=== PATIENT | female | born 1955 | race Caucasian/White ===

== ENCOUNTER 2017-10-28 13:45 | Inpatient (IN) ==
[2017-10-28 14:55] LABS: Basophils % 0.2 % (0.0-0.8); Eosinophils # 0.1 10*3/uL (0.0-0.87); Eosinophils % 2.2 % (0.00-10.9); Hematocrit 25.3 VOL% (35.7-47.0); Hemoglobin 8.8 GM/DL (12.0-16.0); Immature Granulocytes % 1.7 %; Immature Granulocytes Absolute 0.07 #; Lymphocytes # 1.1 10*3/uL (1.4-4.0); Mean Corpuscular HGB Conc 34.8 GM/DL (32-36); Mean Corpuscular Hemoglobin 42 PG (27-34); Mean Corpuscular Volume 119.9 FL (87-102); Mean Platelet Volume 10.9 FL (9.6-12.0); Monocytes # 0.1 10*3/uL (0.11-0.8); Monocytes % 2.4 % (1.7-12.7); NRBC # 0.03 10*3/uL; Neutrophils # 2.8 10*3/uL (1.4-7.4); Neutrophils % 67.5 % (38.7-73.9); Platelet Count 89 T/CUMM (130-400); Red Blood Count 2.11 MC/CUMM (3.8-5.5); White Blood Count 4.2 T/CUMM (4-12)
[2017-10-28 15:13] LABS: Alanine Aminotransferase 18 U/L (13-56); Albumin 3.3 G/DL (3.4-5.0); Alkaline Phosphatase 101 U/L (45-117); Aspartate Amino Transferase 41 U/L (0-37); Blood Urea Nitrogen 7 MG/DL (7-18); Calcium 8.6 MG/DL (8.5-10.1); Glucose 59 MG/DL (74-106); Osmolality,Calculated 276.3 MOS/KG (273-304); Potassium 3.9 MMOL/L (3.5-5.1); Sodium 141 MMOL/L (136-145); Total Protein 7.1 G/DL (6.4-8.3); Troponin I < 0.015 NG/ML (0.00-0.045)
[2017-10-28 15:57] LABS: Anisocytosis 1+; Macrocytosis 2+; Poikilocytosis 1+
[2017-10-28 15:58] LABS: Ovalocytes Few; Polychromasia Slight
[2017-10-28 15:59] LABS: Platelet Estimate Decreased; Tear Drop Cells Few
[2017-10-28 16:00] LABS: Hypochromasia 1+
[2017-10-28 17:02] LABS: Haptoglobin < 8.0 MG/DL (30-200)
[2017-10-28] MEDS ORDERED: CYANOCOBALAMIN 1000 MCG/1 ML VIAL IM STA (17:40)
[2017-10-28] MEDS ORDERED: ONDANSETRON 4 MG/2 ML VIAL IV PRN (18:25)
[2017-10-28 18:54] LABS: % Iron Saturation 38.3 % (18-50)
[2017-10-28 18:56] LABS: Apearance,Urine Slightly Hazy (Clear); Bacteria,Urine Moderate /HPF (Few); Bilirubin,Urine Negative (Negative); Blood, Urine Negative (Negative); Glucose,Urine (UA) Negative (Negative); Ketones,Urine Negative (Negative); Mucus,Urine Many /LPF (Occasional); Nitrite,Urine Positive (Negative); Protein,Urine 30 MG/DL; RBC,Urine 1 /HPF (0-4); Squamous Epithelial Cell,Urine Occasional /HPF (0-10); Urine Color Dark yellow (Yellow); Urine Specific Gravity 1.015 (1.001-1.035); WBC,Urine 9 /HPF (0-6)
[2017-10-28] MEDS ORDERED: GLUCAGON 1 MG VIAL IM PRN (19:20)
[2017-10-28] MEDS ORDERED: DEXTROSE 50% 25 GM/50 ML VIAL IV PRN (19:20)
[2017-10-28] MEDS: SODIUM CHLORIDE 0.9% 1,000 ML IV SCH (21:55)
[2017-10-28] MEDS: glipiZIDE 5 MG TABLET PO SCH (22:47)
[2017-10-28] MEDS: metFORMIN 500 MG TABLET PO SCH (22:47)
[2017-10-28] MEDS: AMITRIPTYLINE 75 MG TABLET PO SCH (22:47)
[2017-10-28] MEDS ORDERED: ACETAMINOPHEN 325 MG TABLET PO PRN (22:57)
[2017-10-29] MEDS: INSULIN REGULAR 100 UNIT/ML SUBCUT SCH ×5 (01:38→20:39)
[2017-10-29 04:55] LABS: Basophils % 0.2 % (0.0-0.8); Eosinophils # 0.1 10*3/uL (0.0-0.87); Eosinophils % 3.4 % (0.00-10.9); Hematocrit 19.7 VOL% (35.7-47.0); Hemoglobin 6.7 GM/DL (12.0-16.0); Immature Granulocytes % 0.7 %; Immature Granulocytes Absolute 0.03 #; Lymphocytes % 48.7 % (21.3-54.2); Mean Corpuscular Hemoglobin 41 PG (27-34); Mean Corpuscular Volume 121.6 FL (87-102); Mean Platelet Volume 10.5 FL (9.6-12.0); Monocytes # 0.2 10*3/uL (0.11-0.8); Monocytes % 3.8 % (1.7-12.7); NRBC # 0.04 10*3/uL; Neutrophils # 1.8 10*3/uL (1.4-7.4); Neutrophils % 43.2 % (38.7-73.9); Red Blood Count 1.62 MC/CUMM (3.8-5.5); White Blood Count 4.2 T/CUMM (4-12)
[2017-10-29 05:21] LABS: Calcium 8.1 MG/DL (8.5-10.1); Osmolality,Calculated 283.7 MOS/KG (273-304); Potassium 3.1 MMOL/L (3.5-5.1)
[2017-10-29 05:29] LABS: Platelet Count 76 T/CUMM (130-400)
[2017-10-29] MEDS: LEVOTHYROXINE 175 MCG TABLET PO SCH (07:03)
[2017-10-29] MEDS: SODIUM CHLORIDE 0.9% 1,000 ML IV SCH (09:21)
[2017-10-29] MEDS: LISINOPRIL/HCTZ 10-12.5 MG TABLET PO SCH (09:21)
[2017-10-29] MEDS: metFORMIN 500 MG TABLET PO SCH ×2 (09:22→20:38)
[2017-10-29] MEDS: CYANOCOBALAMIN 1000 MCG/1 ML VIAL IM SCH (09:22)
[2017-10-29] MEDS: glipiZIDE 5 MG TABLET PO SCH ×2 (09:22→20:38)
[2017-10-29] MEDS ORDERED: SODIUM CHLORIDE 0.9% 1,000 ML IV PRN (09:25)
[2017-10-29] MEDS: cefTRIAXone 1,000 MG in SYRINGE 1 EACH IV SCH (09:53)
[2017-10-29] MEDS: POTASSIUM CHLORIDE 20 MEQ TABLET PO PRN ×3 (09:54→14:11)
[2017-10-29 13:37] LABS: Anisocytosis 2+; Microcytosis 1+; Poikilocytosis 2+; Reactive Lymphocytes Slight; Tear Drop Cells Few
[2017-10-29 13:38] LABS: Ovalocytes Few; Platelet Estimate Decreased; Polychromasia Slight; Schistocytes Slight
[2017-10-29 17:49] LABS: Hematocrit 27.7 VOL% (35.7-47.0)
[2017-10-29 17:50] LABS: Hemoglobin 9.3 GM/DL (12.0-16.0)
[2017-10-29] MEDS: AMITRIPTYLINE 75 MG TABLET PO SCH (20:38)
[2017-10-30] MEDS: SODIUM CHLORIDE 0.9% 1,000 ML IV SCH ×3 (00:03→20:47)
[2017-10-30 04:24] LABS: Basophils % 0.2 % (0.0-0.8); Eosinophils # 0.2 10*3/uL (0.0-0.87); Eosinophils % 4.2 % (0.00-10.9); Hematocrit 25.4 VOL% (35.7-47.0); Hemoglobin 8.7 GM/DL (12.0-16.0); Immature Granulocytes % 1.5 %; Immature Granulocytes Absolute 0.07 #; Lymphocytes # 2.3 10*3/uL (1.4-4.0); Lymphocytes % 51.4 % (21.3-54.2); Mean Corpuscular HGB Conc 34.3 GM/DL (32-36); Mean Corpuscular Hemoglobin 39 PG (27-34); Mean Corpuscular Volume 113.9 FL (87-102); Mean Platelet Volume 9.2 FL (9.6-12.0); Monocytes # 0.3 10*3/uL (0.11-0.8); Monocytes % 6.6 % (1.7-12.7); NRBC # 0.04 10*3/uL; Neutrophils # 1.6 10*3/uL (1.4-7.4); Neutrophils % 36.1 % (38.7-73.9); Platelet Count 74 T/CUMM (130-400); Red Blood Count 2.23 MC/CUMM (3.8-5.5); White Blood Count 4.5 T/CUMM (4-12)
[2017-10-30 04:56] LABS: Eosinophils 5 % (0-10); Hypochromasia 1+; Lymphocytes 49 % (20-55); Platelet Estimate Decreased; Segmented Neutrophils 41 % (50-85); Total Cells Counted 100
[2017-10-30 04:57] LABS: Macrocytosis Slight; Ovalocytes Slight; Polychromasia Slight
[2017-10-30] MEDS: LEVOTHYROXINE 175 MCG TABLET PO SCH (05:38)
[2017-10-30] MEDS: INSULIN REGULAR 100 UNIT/ML SUBCUT SCH ×4 (07:32→20:46)
[2017-10-30] MEDS: CYANOCOBALAMIN 1000 MCG/1 ML VIAL IM SCH (08:20)
[2017-10-30] MEDS: LISINOPRIL/HCTZ 10-12.5 MG TABLET PO SCH (08:20)
[2017-10-30] MEDS: metFORMIN 500 MG TABLET PO SCH ×2 (08:24→20:46)
[2017-10-30] MEDS: glipiZIDE 5 MG TABLET PO SCH ×2 (08:24→20:46)
[2017-10-30] MEDS: cefTRIAXone 1,000 MG in SYRINGE 1 EACH IV SCH (08:30)
[2017-10-30] MEDS ORDERED: PROPOFOL 200 MG/20 ML VIAL IV ONE (08:54)
[2017-10-30] MEDS ORDERED: LIDOCAINE 100 MG/5 ML SYRINGE ONE (08:54)
[2017-10-30] MEDS: BISACODYL 5 MG TABLET PO SCH ×2 (10:23→17:17)
[2017-10-30] MEDS ORDERED: POLYETHYLENE GLYCOL POWDER 255 GM BOTTLE PO ONE (18:00)
[2017-10-30] MEDS: AMITRIPTYLINE 75 MG TABLET PO SCH (20:40)
[2017-10-30] MEDS ORDERED: MAGNESIUM CITRATE 300 ML BOTTLE PO ONE (21:00)
[2017-10-31] MEDS: BISACODYL 5 MG TABLET PO SCH (01:09)
[2017-10-31] MEDS: SODIUM CHLORIDE 0.9% 1,000 ML IV SCH ×2 (05:58→12:48)
[2017-10-31] MEDS: LEVOTHYROXINE 175 MCG TABLET PO SCH (05:58)
[2017-10-31] MEDS: INSULIN REGULAR 100 UNIT/ML SUBCUT SCH ×4 (09:22→21:07)
[2017-10-31] MEDS: glipiZIDE 5 MG TABLET PO SCH ×2 (09:24→21:09)
[2017-10-31] MEDS: metFORMIN 500 MG TABLET PO SCH ×2 (09:24→21:09)
[2017-10-31] MEDS: CYANOCOBALAMIN 1000 MCG/1 ML VIAL IM SCH (09:56)
[2017-10-31] MEDS: cefTRIAXone 1,000 MG in SYRINGE 1 EACH IV SCH (09:57)
[2017-10-31] MEDS ORDERED: LIDOCAINE 2% 5 ML VIAL ONE (10:00)
[2017-10-31] MEDS ORDERED: PHENYLEPHRINE 1 MG/10 ML SYRINGE IV ONE (10:00)
[2017-10-31] MEDS ORDERED: PROPOFOL 200 MG/20 ML VIAL IV ONE (10:00)
[2017-10-31 10:33] LABS: Albumin 2.9 G/DL (3.4-5.0); Bilirubin,Direct 1.08 MG/DL (0.0-0.20); Bilirubin,Total 2.1 MG/DL (0.2-1.0)
[2017-10-31 11:26] LABS: Hepatitis A Ab IgM Quant 0.25 Index; Hepatitis A Ab IgM Result Negative (Negative); Hepatitis B Core IgM Quant < 0.05 Index; Hepatitis B Core IgM Result Negative (Negative); Hepatitis B Surface Ag Quant 0.48 Index; Hepatitis B Surface Ag Result Negative (Negative); Hepatitis C Virus Ab Quant 0.02 Index; Hepatitis C Virus Ab Result Negative (Negative)
[2017-10-31] MEDS: LISINOPRIL/HCTZ 10-12.5 MG TABLET PO SCH (14:59)
[2017-10-31] MEDS: AMITRIPTYLINE 75 MG TABLET PO SCH (21:13)
[2017-11-01] MEDS: SODIUM CHLORIDE 0.9% 1,000 ML IV SCH (02:19)
[2017-11-01] MEDS: LEVOTHYROXINE 175 MCG TABLET PO SCH (06:22)
[2017-11-01] MEDS: INSULIN REGULAR 100 UNIT/ML SUBCUT SCH ×4 (07:37→20:32)
[2017-11-01] MEDS: metFORMIN 500 MG TABLET PO SCH ×2 (08:38→20:31)
[2017-11-01] MEDS: glipiZIDE 5 MG TABLET PO SCH ×2 (08:39→20:31)
[2017-11-01] MEDS: CYANOCOBALAMIN 1000 MCG/1 ML VIAL IM SCH (09:27)
[2017-11-01] MEDS: LISINOPRIL/HCTZ 10-12.5 MG TABLET PO SCH (09:27)
[2017-11-01] MEDS: cefTRIAXone 1,000 MG in SYRINGE 1 EACH IV SCH (09:28)
[2017-11-01 10:54] LABS: INR 1.1
[2017-11-01] MEDS: AMITRIPTYLINE 75 MG TABLET PO SCH (20:32)
[2017-11-02] MEDS: LEVOTHYROXINE 175 MCG TABLET PO SCH (06:02)
[2017-11-02] MEDS: INSULIN REGULAR 100 UNIT/ML SUBCUT SCH ×2 (07:16→13:27)
[2017-11-02] MEDS: metFORMIN 500 MG TABLET PO SCH (08:27)
[2017-11-02] MEDS: glipiZIDE 5 MG TABLET PO SCH (08:27)
[2017-11-02] MEDS: cefTRIAXone 1,000 MG in SYRINGE 1 EACH IV SCH (09:12)
[2017-11-02] MEDS: CYANOCOBALAMIN 1000 MCG/1 ML VIAL IM SCH (09:12)
[2017-11-02] MEDS: LISINOPRIL/HCTZ 10-12.5 MG TABLET PO SCH (09:12)
[2017-11-02 11:47] VITALS: BP 102/64
== END 2017-11-02 14:00 | disposition home or self-care (01) | DRG 241 ==
LOC: N.ED 13:45 → N.EDINP 18:21 → N.3E 19:31
PROVIDERS: ADMIT Internal Medicine; ATTEND Internal Medicine

== ENCOUNTER 2018-03-13 15:41 | Inpatient (IN) ==
[2018-03-13 17:07] LABS: Basophils # 0.1 10*3/uL (0.0-0.2); Basophils % 0.3 % (0.0-0.8); Hematocrit 39.5 VOL% (35.7-47.0); Hemoglobin 12.9 GM/DL (12.0-16.0); Immature Granulocytes % 0.8 %; Immature Granulocytes Absolute 0.19 #; Lymphocytes # 1.5 10*3/uL (1.4-4.0); Lymphocytes % 6.6 % (21.3-54.2); Mean Corpuscular HGB Conc 32.7 GM/DL (32-36); Mean Corpuscular Hemoglobin 28 PG (27-34); Mean Corpuscular Volume 84.4 FL (87-102); Mean Platelet Volume 10.9 FL (9.6-12.0); Monocytes # 1.1 10*3/uL (0.11-0.8); Monocytes % 4.9 % (1.7-12.7); Neutrophils # 19.7 10*3/uL (1.4-7.4); Neutrophils % 87.4 % (38.7-73.9); Platelet Count 131 T/CUMM (130-400); Red Blood Count 4.68 MC/CUMM (3.8-5.5); Red Cell Distribution Width 13.3 % (9.3-17.3); White Blood Count 22.6 T/CUMM (4-12)
[2018-03-13] MEDS ORDERED: IBUPROFEN 400 MG TABLET PO STA (17:23)
[2018-03-13 17:32] LABS: Albumin 3.3 G/DL (3.4-5.0); Bilirubin,Indirect 1.3 MG/DL (0.0-1.0); Bilirubin,Total 2.3 MG/DL (0.2-1.0); Calcium 8.8 MG/DL (8.5-10.1); Osmolality,Calculated 275.4 MOS/KG (273-304); Potassium 3.3 MMOL/L (3.5-5.1); Total Protein 8.6 G/DL (6.4-8.3)
[2018-03-13] MEDS ORDERED: SODIUM CHLORIDE 0.9% 1,000 ML IV STA (18:59)
[2018-03-13 20:00] LABS: Lymphocytes 8 % (20-55); Segmented Neutrophils 87 % (50-85); Total Cells Counted 100
[2018-03-13 20:01] LABS: Anisocytosis Slight; Hypochromasia 1+
[2018-03-13 20:02] LABS: Microcytosis Slight
[2018-03-13 20:04] LABS: Platelet Estimate Adequate
[2018-03-13] MEDS ORDERED: cefTRIAXone 1,000 MG in SODIUM CHLORIDE 0.9% 100 ML IV STA (20:33)
[2018-03-13 21:08] LABS: Apearance,Urine CLOUDY (Clear); Bacteria,Urine Many /HPF (Few); Bilirubin,Urine Negative (Negative); Blood, Urine Small mg/dL (Negative); Glucose,Urine (UA) Negative (Negative); Hyaline Casts,Urine 32 /LPF (0-3); Ketones,Urine Negative (Negative); Mucus,Urine Occasional /LPF (Occasional); Nitrite,Urine Negative (Negative); Protein,Urine 100 MG/DL; RBC,Urine 6 /HPF (0-4); Urine Color Amber (Yellow); Urine Specific Gravity 1.014 (1.001-1.035); WBC,Urine 355 /HPF (0-6)
[2018-03-14] MEDS ORDERED: BISACODYL 5 MG TABLET PO PRN (00:59)
[2018-03-14] MEDS ORDERED: DEXTROSE 50% 25 GM/50 ML SYRINGE IV PRN (00:59)
[2018-03-14] MEDS ORDERED: GLUCAGON 1 MG VIAL IM PRN (00:59)
[2018-03-14] MEDS ORDERED: ONDANSETRON 4 MG/2 ML VIAL IV PRN (00:59)
[2018-03-14] MEDS ORDERED: POTASSIUM CHLORIDE INJ 20 MEQ in SODIUM CHLORIDE 0.9% 1,000 ML IV SCH (01:00)
[2018-03-14] MEDS: SODIUM CHLOR 0.9% KCL 20 MEQ 20 MEQ/1,000 ML BAG IV SCH ×3 (01:41→22:18)
[2018-03-14] MEDS: CEFEPIME 1,000 MG in SYRINGE 1 EACH IV SCH ×2 (01:44→13:16)
[2018-03-14] MEDS: ACETAMINOPHEN 325 MG TABLET PO PRN ×2 (04:09→17:30)
[2018-03-14 04:53] LABS: Basophils # 0.1 10*3/uL (0.0-0.2); Basophils % 0.4 % (0.0-0.8); Eosinophils % 0.1 % (0.00-10.9); Hematocrit 36.4 VOL% (35.7-47.0); Hemoglobin 11.7 GM/DL (12.0-16.0); Immature Granulocytes % 0.4 %; Immature Granulocytes Absolute 0.06 #; Lymphocytes # 0.9 10*3/uL (1.4-4.0); Lymphocytes % 6.5 % (21.3-54.2); Mean Corpuscular HGB Conc 32.1 GM/DL (32-36); Mean Corpuscular Hemoglobin 28 PG (27-34); Mean Corpuscular Volume 85.4 FL (87-102); Monocytes # 0.6 10*3/uL (0.11-0.8); Monocytes % 4.5 % (1.7-12.7); Neutrophils # 12.5 10*3/uL (1.4-7.4); Neutrophils % 88.1 % (38.7-73.9); Platelet Count 134 T/CUMM (130-400); Red Blood Count 4.26 MC/CUMM (3.8-5.5); Red Cell Distribution Width 13.4 % (9.3-17.3); White Blood Count 14.2 T/CUMM (4-12)
[2018-03-14 05:22] LABS: Calcium 8.6 MG/DL (8.5-10.1); Osmolality,Calculated 282.7 MOS/KG (273-304); Potassium 3.5 MMOL/L (3.5-5.1)
[2018-03-14] MEDS: LEVOTHYROXINE 175 MCG TABLET PO SCH (05:48)
[2018-03-14 05:53] LABS: Band Neutrophils 10 % (0-10); Hypochromasia 1+; Lymphocytes 9 % (20-55); Microcytosis Slight; Ovalocytes Slight; Segmented Neutrophils 80 % (50-85); Total Cells Counted 100
[2018-03-14] MEDS: INSULIN REGULAR 100 UNIT/ML SUBCUT SCH ×3 (08:15→16:59)
[2018-03-14] MEDS: VITAMIN E 400 UNIT CAPSULE PO SCH ×2 (08:16→22:14)
[2018-03-14] MEDS: PANTOPRAZOLE 40 MG TABLET PO SCH ×2 (08:16→22:14)
[2018-03-14] MEDS: metFORMIN 500 MG TABLET PO SCH ×2 (08:16→22:14)
[2018-03-14] MEDS ORDERED: hydrALAZINE 20 MG/1 ML VIAL IV PRN (09:59)
[2018-03-14] MEDS: AMITRIPTYLINE 75 MG TABLET PO SCH (22:14)
[2018-03-15] MEDS: INSULIN REGULAR 100 UNIT/ML SUBCUT SCH ×5 (03:39→21:44)
[2018-03-15] MEDS: CEFEPIME 1,000 MG in SYRINGE 1 EACH IV SCH ×2 (03:40→14:10)
[2018-03-15] MEDS: SODIUM CHLOR 0.9% KCL 20 MEQ 20 MEQ/1,000 ML BAG IV SCH ×4 (03:40→19:01)
[2018-03-15 05:08] LABS: Basophils # 0.1 10*3/uL (0.0-0.2); Basophils % 0.4 % (0.0-0.8); Eosinophils # 0.2 10*3/uL (0.0-0.87); Eosinophils % 1.3 % (0.00-10.9); Hematocrit 32.3 VOL% (35.7-47.0); Hemoglobin 10.1 GM/DL (12.0-16.0); Immature Granulocytes % 1.1 %; Immature Granulocytes Absolute 0.15 #; Lymphocytes # 1.5 10*3/uL (1.4-4.0); Lymphocytes % 11.1 % (21.3-54.2); Mean Corpuscular HGB Conc 31.3 GM/DL (32-36); Mean Corpuscular Hemoglobin 27 PG (27-34); Mean Corpuscular Volume 86.6 FL (87-102); Mean Platelet Volume 10.6 FL (9.6-12.0); Monocytes # 0.9 10*3/uL (0.11-0.8); Monocytes % 6.9 % (1.7-12.7); Neutrophils # 10.6 10*3/uL (1.4-7.4); Neutrophils % 79.2 % (38.7-73.9); Platelet Count 134 T/CUMM (130-400); Red Blood Count 3.73 MC/CUMM (3.8-5.5); Red Cell Distribution Width 13.6 % (9.3-17.3); White Blood Count 13.4 T/CUMM (4-12)
[2018-03-15 05:25] LABS: Osmolality,Calculated 280.4 MOS/KG (273-304); Potassium 3.8 MMOL/L (3.5-5.1)
[2018-03-15] MEDS: LEVOTHYROXINE 175 MCG TABLET PO SCH (06:30)
[2018-03-15] MEDS: PANTOPRAZOLE 40 MG TABLET PO SCH ×2 (08:11→21:43)
[2018-03-15] MEDS: VITAMIN E 400 UNIT CAPSULE PO SCH ×2 (08:11→21:43)
[2018-03-15] MEDS: metFORMIN 500 MG TABLET PO SCH ×2 (08:11→21:43)
[2018-03-15] MEDS: ACETAMINOPHEN 325 MG TABLET PO PRN (08:11)
[2018-03-15] MEDS: DIAZEPAM 5 MG TABLET PO SCH ×2 (09:41→21:43)
[2018-03-15] MEDS: AMITRIPTYLINE 75 MG TABLET PO SCH (21:43)
[2018-03-16] MEDS: CEFEPIME 1,000 MG in SYRINGE 1 EACH IV SCH ×2 (02:33→14:00)
[2018-03-16 04:38] LABS: Basophils % 0.4 % (0.0-0.8); Eosinophils # 0.2 10*3/uL (0.0-0.87); Eosinophils % 1.7 % (0.00-10.9); Hematocrit 30.9 VOL% (35.7-47.0); Hemoglobin 9.7 GM/DL (12.0-16.0); Immature Granulocytes % 0.7 %; Immature Granulocytes Absolute 0.07 #; Lymphocytes # 1.6 10*3/uL (1.4-4.0); Lymphocytes % 16.8 % (21.3-54.2); Mean Corpuscular HGB Conc 31.4 GM/DL (32-36); Mean Corpuscular Hemoglobin 27 PG (27-34); Mean Corpuscular Volume 85.8 FL (87-102); Mean Platelet Volume 10.6 FL (9.6-12.0); Monocytes # 0.7 10*3/uL (0.11-0.8); Monocytes % 7.1 % (1.7-12.7); Neutrophils % 73.3 % (38.7-73.9); Platelet Count 126 T/CUMM (130-400); Red Cell Distribution Width 13.3 % (9.3-17.3); White Blood Count 9.5 T/CUMM (4-12)
[2018-03-16 05:10] LABS: Osmolality,Calculated 276.5 MOS/KG (273-304); Potassium 3.5 MMOL/L (3.5-5.1)
[2018-03-16] MEDS: LEVOTHYROXINE 175 MCG TABLET PO SCH (05:36)
[2018-03-16] MEDS: INSULIN REGULAR 100 UNIT/ML SUBCUT SCH ×4 (08:30→21:08)
[2018-03-16] MEDS: VITAMIN E 400 UNIT CAPSULE PO SCH ×2 (09:27→21:07)
[2018-03-16] MEDS: metFORMIN 500 MG TABLET PO SCH ×2 (09:27→21:07)
[2018-03-16] MEDS: DIAZEPAM 5 MG TABLET PO SCH ×2 (09:27→21:07)
[2018-03-16] MEDS: PANTOPRAZOLE 40 MG TABLET PO SCH ×2 (09:27→21:07)
[2018-03-16] MEDS: LEVOFLOXACIN 750 MG TABLET PO SCH (18:15)
[2018-03-16] MEDS: AMITRIPTYLINE 75 MG TABLET PO SCH (21:07)
[2018-03-17 05:17] LABS: Basophils % 0.4 % (0.0-0.8); Eosinophils # 0.2 10*3/uL (0.0-0.87); Eosinophils % 2.7 % (0.00-10.9); Hematocrit 31.7 VOL% (35.7-47.0); Immature Granulocytes % 0.6 %; Immature Granulocytes Absolute 0.05 #; Lymphocytes # 1.5 10*3/uL (1.4-4.0); Lymphocytes % 18.5 % (21.3-54.2); Mean Corpuscular HGB Conc 31.5 GM/DL (32-36); Mean Corpuscular Hemoglobin 27 PG (27-34); Mean Corpuscular Volume 86.1 FL (87-102); Mean Platelet Volume 10.9 FL (9.6-12.0); Monocytes # 0.6 10*3/uL (0.11-0.8); Monocytes % 7.4 % (1.7-12.7); Neutrophils # 5.8 10*3/uL (1.4-7.4); Neutrophils % 70.4 % (38.7-73.9); Platelet Count 141 T/CUMM (130-400); Red Blood Count 3.68 MC/CUMM (3.8-5.5); Red Cell Distribution Width 13.2 % (9.3-17.3); White Blood Count 8.2 T/CUMM (4-12)
[2018-03-17 05:38] LABS: Calcium 8.2 MG/DL (8.5-10.1); Osmolality,Calculated 274.7 MOS/KG (273-304); Potassium 3.8 MMOL/L (3.5-5.1)
[2018-03-17] MEDS: LEVOTHYROXINE 175 MCG TABLET PO SCH (06:22)
[2018-03-17] MEDS: VITAMIN E 400 UNIT CAPSULE PO SCH (09:04)
[2018-03-17] MEDS: DIAZEPAM 5 MG TABLET PO SCH (09:04)
[2018-03-17] MEDS: LEVOFLOXACIN 750 MG TABLET PO SCH (09:04)
[2018-03-17] MEDS: PANTOPRAZOLE 40 MG TABLET PO SCH (09:04)
[2018-03-17] MEDS: metFORMIN 500 MG TABLET PO SCH (09:11)
[2018-03-17] MEDS: INSULIN REGULAR 100 UNIT/ML SUBCUT SCH (09:12)
[2018-03-17 12:25] VITALS: BP 123/83
== END 2018-03-17 12:00 | disposition home or self-care (01) | DRG 463 ==
LOC: N.ED 15:41 → SUATTDRO 23:31 → N.EDINP 23:31 → N.3E 03-14 00:03
PROVIDERS: ADMIT Internal Medicine; ATTEND Hospitalist